=== PATIENT | male | born 1950 | race Caucasian/White ===

== ENCOUNTER 2017-02-10 10:43 | Emergency (ER) | payer OTHER ==
[~2017-02-10] VITALS: Ht 182.9 cm; Wt 94.3 kg
[2017-02-10] MEDS: KETOROLAC TROMETHAMINE 60 MG INJ IM ONE (11:14)
[2017-02-10] MEDS ORDERED: KETOROLAC TROMETHAMINE 60 MG INJ IM ONE (11:22)
--- NOTE | 2017-02-10 11:47 | NUR ---
Patient discharged to home in stable conditon. Written and verbal after care instructions given. Patient verbalizes understanding of instructions.
== END 2017-02-10 11:47 | disposition home or self-care (01) ==
LOC: ER 10:43
DX: S46.911A Strain of unspecified muscle, fascia and tendon at shoulder and upper arm level, right arm, initial encounter (principal); G20 Parkinson's disease; V43.92XA Unspecified car occupant injured in collision with other type car in traffic accident, initial encounter; Y93.89 Activity, other specified; Y92.413 State road as the place of occurrence of the external cause; Y99.9 Unspecified external cause status
CPT/HCPCS: A4663; J1885